=== PATIENT | male | born 1995 | race Caucasian/White ===

== ENCOUNTER 2017-01-13 15:50 | Emergency (ER) | payer SELFPAY ==
[~2017-01-13] VITALS: Ht 170.2 cm; Wt 70.0 kg
[2017-01-13 15:50] VITALS: BP 133/89; PULSE 101; RESP 16; TEMP 98.2; O2SAT 99
[2017-01-13] MEDS ORDERED: SODIUM CHLOR 0.9% 1000 ML INJ 1,000 ML IV SCH (16:05)
[2017-01-13] MEDS ORDERED: ONDANSETRON HCL 4 MG/2 ML VIAL IVP ONE (16:15)
[2017-01-13] MEDS ORDERED: KETOROLAC TROMETHAMINE 30 MG/ML (IVP) VIAL IVP ONE (16:15)
[2017-01-13] MEDS ORDERED: BENZ0.5T PO (16:31)
[2017-01-13] MEDS ORDERED: QUET400T PO (16:31)
--- NOTE | 2017-01-13 16:38 | RADRPT ---
EXAM DATE/TIME: 01/13/2017 16:08 [facility] COMPARISON: CHEST SINGLE AP, August 01, 2014, 22:01. INDICATIONS : Pain in middle of chest, nausea, vomiting MEDICAL HISTORY : None. SURGICAL HISTORY : None. ENCOUNTER: Initial ACUITY: 1 day PAIN SCORE: Non-responsive. LOCATION: Bilateral chest FINDINGS: A single view of the chest demonstrates the lungs to be symmetrically aerated without evidence of mas s, infiltrate or effusion. The cardiomediastinal contours are unremarkable. Osseous structures are intact. CONCLUSION: No acute disease. Derian Coleman MD on January 13, 2017 at 16:37 Board Certified Radiologist. This report was verified electronically.
--- NOTE | 2017-01-13 16:49 | PD ---
HPI Chief Complaint: OD/ Ingestion Time Seen by Provider: 16:02 Travel History International Travel<30 days: No Contact w/Intl Traveler<30days: No Traveled to known affect area: No History of Present Illness HPI 21-year-old male that presents to the ED for evaluation of overdose. Patient was brought here by ambulance. Apparently he was found by mother unconscious in the room. Patient has a history of IV drug abuse and apparently has been clean for about 55 days. He relapsed today. He states that he used "2 bags "which is his usual. He was found to be unresponsive by mother who started CPR on him and called the ambulance. Ambulance given 0.2 of Narcan with improvement of symptoms. Patient complains of some nausea and vomiting as well as some headache. He is very anxious on exam. He denies any other medical issues. He does have a history of depression. Per patient he also uses Xanax before injecting himself IV heroine. He denies any fevers chills or sweats. Denies any other medical issues. Denies overdosing on his depression medications. She denies doing this as a suicidal attempt and states that this was purely recreationally. Per patient he believes that he relapsed because of increased anxiety and stressors at home. PFSH Past Medical History Anxiety: Yes Cardiovascular Problems: Yes (TACHYCARDIA; TAKES PROPANOLOL "PRN") Diminished Hearing: No Gastrointestinal Disorders: Yes (ULCERS ) Genitourinary: Yes Immunizations Current: Yes Past Surgical History Genitourinary Surgery: Yes Other Surgery: Yes (PILONIDAL CYSTS) Social History Alcohol Use: No Tobacco Use: Yes Substance Use: Yes Allergies-Medications (Allergen,Severity, Reaction): Coded Allergies: ceftriaxone (Verified Allergy, Severe, hives, 01/13/17) Reported Meds & Prescriptions Reported Meds & Active Scripts Active Narcan Nasal [place] (Naloxone HCl) 4 Mg/Act [place] 4 Mg NASAL ONCE PRN Contents of 1 nasal spray as a single dose; may repeat every 2 to 3 minutes in alternating nostrils until medical assistance becomes available. Reported Quetiapine (Quetiapine Fumarate) 400 Mg Tab 400 Mg PO HS Benztropine (Benztropine Mesylate) 0.5 Mg Tab 0.2 Mg PO HS Review of Systems Except as stated in HPI: all other systems reviewed are Neg Physical Exam Narrative GENERAL: SKIN: Warm and dry. HEAD: Atraumatic. Normocephalic. EYES: Pupils equal and round 4 mm reactive to light and accommodation. No scleral icterus. No injection or drainage. ENT: No nasal bleeding or discharge. Mucous membranes pink and moist. Tongue is midline. No uvula deviation. NECK: Trachea midline. No JVD. CARDIOVASCULAR: Regular rate and rhythm. No murmurs, S3, S4. RESPIRATORY: No accessory muscle use. Clear to auscultation. Breath sounds equal bilaterally. GASTROINTESTINAL: Abdomen soft, non-tender, nondistended. Hepatic and splenic margins not palpable. MUSCULOSKELETAL: Extremities without clubbing, cyanosis, or edema. No obvious deformities. Full range of motion of the upper and lower extremities bilaterally. Patient has a injection site on the right antecubital area with no sign of bleeding or deformity. NEUROLOGICAL: Awake and alert. No obvious cranial nerve deficits. Motor grossly within normal limits. Five out of 5 muscle strength in the arms and legs. Normal speech. PSYCHIATRIC: Appropriate mood and affect; insight and judgment normal. Data Data Last Documented VS Vital Signs Date Time Temp Pulse Resp B/P (MAP) Pulse Ox O2 Delivery O2 Flow Rate FiO2 01/13/17 18:00 97 16 144/84 (104) 99 Nasal Cannula 2.00 01/13/17 15:50 98.2 Orders Orders Electrocardiogram (01/13/17 16:05) Complete Blood Count With Diff (01/13/17 16:05) Comprehensive Metabolic Panel (01/13/17 16:05) Magnesium (Mg) (01/13/17 16:05) Chest, Single Ap (01/13/17 16:05) Iv Access Insert/Monitor (01/13/17 16:05) Ecg Monitoring (01/13/17 16:05) Oximetry (01/13/17 16:05) Drug Screen, Random Urine (01/13/17 16:05) Alcohol (Ethanol) (01/13/17 16:05) Salicylates (Aspirin) (01/13/17 16:05) Tylenol (Acetaminophen) (01/13/17 16:05) Ondansetron Inj (Zofran Inj) (01/13/17 16:15) Sodium Chlor 0.9% 1000 Ml Inj (Ns 1000 M (01/13/17 16:05) Ketorolac Inj (Toradol Inj) (01/13/17 16:15) Ed Discharge Order (01/13/17 19:09) Labs Laboratory Tests Test 01/13/17 16:15 White Blood Count 9.1 TH/MM3 Red Blood Count 5.14 MIL/MM3 Hemoglobin 14.9 GM/DL Hematocrit 44.6 % Mean Corpuscular Volume 86.8 FL Mean Corpuscular Hemoglobin 29.0 PG Mean Corpuscular Hemoglobin Concent 33.4 % Red Cell Distribution Width 13.6 % Platelet Count 156 TH/MM3 Mean Platelet Volume 9.8 FL CBC Comment AUTO DIFF Differential Total Cells Counted 100 Neutrophils % (Manual) 77 % Band Neutrophils % 1 % Lymphocytes % 16 % Monocytes % 5 % Neutrophils # (Manual) 7.2 TH/MM3 Metamyelocytes 1 % Differential Comment FINAL DIFF MANUAL Platelet Estimate NORMAL Platelet Morphology Comment ENLARGED Blood Urea Nitrogen 18 MG/DL Creatinine 1.18 MG/DL Random Glucose 160 MG/DL Total Protein 8.0 GM/DL Albumin 4.3 GM/DL Calcium Level 8.7 MG/DL Magnesium Level 2.1 MG/DL Alkaline Phosphatase 64 U/L Aspartate Amino Transf (AST/SGOT) 68 U/L Alanine Aminotransferase (ALT/SGPT) 94 U/L Total Bilirubin 0.2 MG/DL Sodium Level 138 MEQ/L Potassium Level 4.3 MEQ/L Chloride Level 102 MEQ/L Carbon Dioxide Level 26.7 MEQ/L Anion Gap 9 MEQ/L Estimat Glomerular Filtration Rate 76 ML/MIN Salicylates Level 2.1 MG/DL Acetaminophen Level LESS THAN 2.0 MCG/ML Ethyl Alcohol Level LESS THAN 3 MG/DL MDM Medical Decision Making Medical Screen Exam Complete: Yes Emergency Medical Condition: Yes Medical Record Reviewed: Yes Interpretation(s) CBC & BMP Diagram 01/13/17 16:15 Total Protein 8.0, Albumin 4.3, Calcium Level 8.7, Magnesium Level 2.1, Alkaline Phosphatase 64, Aspartate Amino Transf (AST/SGOT) 68 H, Alanine Aminotransferase (ALT/SGPT) 94 H, Total Bilirubin 0.2 tox negative Differential Diagnosis Appeared overdose versus scarring overdose versus syncope versus depression versus normal exam Narrative Course 21-year-old male that presents to the ED for evaluation of opiate overdose. Patient was properly examined and was found to have signs and symptoms consistent with opiate overdose. Patient was given IV fluids and labs were ordered. Patient had chest compressions a chest x-ray was ordered. Patient was given Zofran and Toradol for his discomfort. Labs and imaging showed no sign of acute disease. Patient was reassured. Case was discussed with the family and they agree with discharge. Patient was given information for outpatient rehabilitation facilities. Given information for the psychiatrist on -call. Family requested narcotic prescription. This was given to the patient. Recommendations that the patient follows outpatient with psychiatrist or rehabilitation facility if needed. See ED worsening symptoms. Follow with PCP. Diagnosis Primary Impression: Opiate overdose Qualified Codes: T40.601A - Poisoning by unspecified narcotics, accidental ( unintentional), initial encounter Referrals: Adam Jaramillo MD [facility] (Out patient) Patient Instructions: General Instructions Additional Instructions: Take medication only if needed. Follow with her psychiatrist. See ED worsening symptoms. He can follow with the rehabilitation of choice. Med/Other Pt SpecificInfo: Prescription(s) given Scripts Naloxone Nasal [place] (Narcan Nasal [place]) 4 Mg/Act Coy 4 MG NASAL ONCE Y for OPIOID OVERDOSE, #6 SPRAY 0 Refills Contents of 1 nasal spray as a single dose; may repeat every 2 to 3 minutes in alternating nostrils until medical assistance becomes available. Prov: Roger Hogue MD 01/13/17 Disposition: 01 DISCHARGE HOME Condition: Stable Gael Hutchison Jan 13, 2017 16:49
[2017-01-13 17:00] VITALS: BP 130/62; PULSE 98; RESP 16; O2SAT 100
[2017-01-13 17:02] LABS: HEMATOCRIT 44.6 % (39.0-51.0); MEAN CELL VOLUME 86.8 FL (80.0-100.0); MEAN CORPUSCULAR HGB CONC 33.4 % (32.0-36.0); PLATELET COUNT 156 TH/MM3 (150-450); RED BLOOD COUNT 5.14 MIL/MM3 (4.50-5.90); RED CELL DISTRIBUTION WIDTH 13.6 % (11.6-17.2); WHITE BLOOD COUNT 9.1 TH/MM3 (4.0-11.0)
[2017-01-13 17:13] LABS: HEMO FLAGS AUTO DIFF
[2017-01-13 17:17] LABS: ALT (GPT) 94 U/L (12-78); ANION GAP 9 MEQ/L (5-15); AST (GOT) 68 U/L (15-37); BICARBONATE 26.7 MEQ/L (21.0-32.0); BLOOD UREA NITROGEN 18 MG/DL (7-18); CHLORIDE 102 MEQ/L (98-107); GLOMERULAR FILTRATION RATE 76 ML/MIN (>89); MAGNESIUM 2.1 MG/DL (1.5-2.5); POTASSIUM 4.3 MEQ/L (3.5-5.1); SODIUM (NA) 138 MEQ/L (136-145)
[2017-01-13 17:19] LABS: ALCOHOL LESS THAN 3 MG/DL (0-5); ALKALINE PHOSPHATASE 64 U/L (45-117); TOTAL BILIRUBIN ADULT 0.2 MG/DL (0.2-1.0)
[2017-01-13 17:21] LABS: ACETAMINOPHEN LESS THAN 2.0 MCG/ML (10.0-30.0)
[2017-01-13 18:00] VITALS: BP 144/84; PULSE 97; RESP 16; O2SAT 99
--- NOTE | 2017-01-13 18:14 | PD ---
Data Data Last Documented VS Vital Signs Date Time Temp Pulse Resp B/P (MAP) Pulse Ox O2 Delivery O2 Flow Rate FiO2 01/13/17 17:00 98 16 130/62 (84) 100 Nasal Cannula 2.00 01/13/17 15:50 98.2 Orders Orders Electrocardiogram (01/13/17 16:05) Complete Blood Count With Diff (01/13/17 16:05) Comprehensive Metabolic Panel (01/13/17 16:05) Magnesium (Mg) (01/13/17 16:05) Chest, Single Ap (01/13/17 16:05) Iv Access Insert/Monitor (01/13/17 16:05) Ecg Monitoring (01/13/17 16:05) Oximetry (01/13/17 16:05) Drug Screen, Random Urine (01/13/17 16:05) Alcohol (Ethanol) (01/13/17 16:05) Salicylates (Aspirin) (01/13/17 16:05) Tylenol (Acetaminophen) (01/13/17 16:05) Ondansetron Inj (Zofran Inj) (01/13/17 16:15) Sodium Chlor 0.9% 1000 Ml Inj (Ns 1000 M (01/13/17 16:05) Ketorolac Inj (Toradol Inj) (01/13/17 16:15) Psych Screen (01/13/17 17:16) Labs Laboratory Tests Test 01/13/17 16:15 White Blood Count 9.1 TH/MM3 Red Blood Count 5.14 MIL/MM3 Hemoglobin 14.9 GM/DL Hematocrit 44.6 % Mean Corpuscular Volume 86.8 FL Mean Corpuscular Hemoglobin 29.0 PG Mean Corpuscular Hemoglobin Concent 33.4 % Red Cell Distribution Width 13.6 % Platelet Count 156 TH/MM3 Mean Platelet Volume 9.8 FL CBC Comment AUTO DIFF Blood Urea Nitrogen 18 MG/DL Creatinine 1.18 MG/DL Random Glucose 160 MG/DL Total Protein 8.0 GM/DL Albumin 4.3 GM/DL Calcium Level 8.7 MG/DL Magnesium Level 2.1 MG/DL Alkaline Phosphatase 64 U/L Aspartate Amino Transf (AST/SGOT) 68 U/L Alanine Aminotransferase (ALT/SGPT) 94 U/L Total Bilirubin 0.2 MG/DL Sodium Level 138 MEQ/L Potassium Level 4.3 MEQ/L Chloride Level 102 MEQ/L Carbon Dioxide Level 26.7 MEQ/L Anion Gap 9 MEQ/L Estimat Glomerular Filtration Rate 76 ML/MIN Salicylates Level 2.1 MG/DL Acetaminophen Level LESS THAN 2.0 MCG/ML Ethyl Alcohol Level LESS THAN 3 MG/DL MDM Supervised Visit with EDI: Yes Narrative Course The history, exam, and medical decision-making in the associated mid-level provider note were completed with my assistance. I reviewed and agree with the findings presented. I attest that I had a [id number] encounter with the patient on the same day, and personally performed and documented my assessment and findings in the medical record. *My assessment and Findings: 21-year-old accidental heroin overdose combined with benzos. Treated with Narcan. He'll be monitored emergency department. He has family here with him. Discussed support services in the community. High risk for relapse. Roger Hogue MD Jan 13, 2017 18:14
[2017-01-13 18:41] LABS: BANDS 1 % (0-6); METAMYELOCYTES 1 % (0-1); NEUTROPHIL # MANUAL DIFF 7.2 TH/MM3 (1.8-7.7); POLYS (SEG NEUTROPHILS) 77 % (16-70); WBC DIFF SAMPLE 100
[2017-01-13 18:42] LABS: PLATELET ESTIMATE SMEAR NORMAL (NORMAL); PLATELET MORPHOLOGY ENLARGED (NORMAL); SCAN/DIFF FINAL DIFF MANUAL
[2017-01-13] MEDS ORDERED: NALO1SPR NASAL (19:02)
[2017-01-13 19:37] VITALS: BP 138/69; PULSE 98; RESP 12; O2SAT 100
--- NOTE | 2017-01-14 09:54 | EKG ---
Date Performed: 01/13/2017 Time Performed: 16:36:36 PTAGE: 21 years EKG: Sinus rhythm NONSPECIFIC ST & T-WAVE ABNORMALITY ABNORMAL ECG PREVIOUS TRACING : 08/01/2014 21.43 DOCTOR: Roger Kirkland Interpretating Date/Time 01/14/2017 09:53:57
== END 2017-01-13 19:43 | disposition home or self-care (01) ==
LOC: NEPC 15:50
DX: T40.1X1A Poisoning by heroin, accidental (unintentional), initial encounter (principal); T42.4X1A Poisoning by benzodiazepines, accidental (unintentional), initial encounter; R11.2 Nausea with vomiting, unspecified; R51 Headache; F32.9 Major depressive disorder, single episode, unspecified; F41.9 Anxiety disorder, unspecified; R94.31 Abnormal electrocardiogram [ECG] [EKG]; Z72.0 Tobacco use; Z79.899 Other long term (current) drug therapy
CPT/HCPCS: 71010; 80053; 80307; 83735; 85007; 85027; 93005; 96361; 96374; 96375; 99285; J1885; J2405; J7030

== ENCOUNTER 2017-02-17 11:05 | Emergency (ER) | payer OTHER ==
[~2017-02-17] VITALS: Ht 170.2 cm; Wt 72.0 kg
[~2017-02-17 11:05] MED LIST: BENZ0.5T PO; NALO1SPR NASAL; QUET400T PO
[2017-02-17 11:13] VITALS: BP 115/82; PULSE 168; RESP 18; O2SAT 97
[2017-02-17] MEDS ORDERED: SODIUM CHLOR 0.9% 1000 ML INJ 1,000 ML IV SCH (11:18)
[2017-02-17] MEDS ORDERED: NALOXONE HCL 0.4 MG/ML AMP ONE ×2 (11:19→11:20)
[2017-02-17 11:27] VITALS: BP 115/82; PULSE 138; RESP 18; O2SAT 100
[2017-02-17] MEDS ORDERED: NALOXONE HCL 0.4 MG/ML AMP IV PUSH ONE (11:30)
[2017-02-17] MEDS ORDERED: SODIUM CHLORIDE 0.9% FLUSH 10 ML FLUSH IV FLUSH PRN (11:30)
--- NOTE | 2017-02-17 12:46 | PD ---
HPI Chief Complaint: Altered Mental Status Time Seen by Provider: 11:08 Travel History International Travel<30 days: No Contact w/Intl Traveler<30days: No Traveled to known affect area: No History of Present Illness HPI 20-year-old male came to the emergency room brought by EMS altered mental status. [place] Patient seems to be falling asleep in the middle of answering. However he did tell me that he took 4 mg of his mother's Ativan pills last night. He took it because he was anxious and could not sleep. Denied any other illicit drug use. Patient was tachycardic upon arrival with heart rate in 160s. [facility] Past Medical History Narrative Medical list of his past medical, surgical, social and family history is reviewed from the nursing note. Anxiety: Yes Cardiovascular Problems: Yes Diminished Hearing: No Gastrointestinal Disorders: Yes (ULCERS ) Genitourinary: Yes Immunizations Current: Yes Past Surgical History Genitourinary Surgery: Yes Other Surgery: Yes (PILONIDAL CYSTS) Social History Alcohol Use: No Tobacco Use: Yes Substance Use: Yes Allergies-Medications (Allergen,Severity, Reaction): Coded Allergies: ceftriaxone (Verified Allergy, Severe, hives, 01/13/17) Comments List of his allergies reviewed from the nursing note. Reported Meds & Prescriptions Reported Meds & Active Scripts Active Narcan Nasal [place] (Naloxone HCl) 4 Mg/Act [place] 4 Mg NASAL ONCE PRN Contents of 1 nasal spray as a single dose; may repeat every 2 to 3 minutes in alternating nostrils until medical assistance becomes available. Reported Quetiapine (Quetiapine Fumarate) 400 Mg Tab 400 Mg PO HS Benztropine (Benztropine Mesylate) 0.5 Mg Tab 0.2 Mg PO HS Narrative Medication List of his home medications reviewed from the nursing note. Review of Systems ROS Limitations: Altered Mental Status Except as stated in HPI: all other systems reviewed are Neg Physical Exam Narrative GENERAL: Groggy, slurred speech SKIN: Focused skin assessment warm/dry. HEAD: Atraumatic. Normocephalic. EYES: Pinpoint pupils. No scleral icterus. No injection or drainage. ENT: No nasal bleeding or discharge. Mucous membranes pink and moist. NECK: Trachea midline. No JVD. CARDIOVASCULAR: Regular rate and rhythm. No murmur appreciated. RESPIRATORY: No accessory muscle use. Clear to auscultation. Breath sounds equal bilaterally. GASTROINTESTINAL: Abdomen soft, non-tender, nondistended. Hepatic and splenic margins not palpable. MUSCULOSKELETAL: No obvious deformities. No clubbing. No cyanosis. No edema. NEUROLOGICAL: GCS of 14. No obvious cranial nerve deficits. Motor grossly within normal limits. Slurred speech. PSYCHIATRIC: Appropriate mood and affect; insight and judgment normal. Data Data Last Documented VS Vital Signs Date Time Temp Pulse Resp B/P (MAP) Pulse Ox O2 Delivery O2 Flow Rate FiO2 02/17/17 11:44 02/17/17 11:27 138 18 100 Room Air Orders Orders Electrocardiogram (02/17/17 11:18) Blood Glucose (02/17/17 11:18) Ecg Monitoring (02/17/17 11:18) Iv Access Insert/Monitor (02/17/17 11:18) Oximetry (02/17/17 11:18) Sodium Chloride 0.9% Flush (Ns Flush) (02/17/17 11:30) Sodium Chlor 0.9% 1000 Ml Inj (Ns 1000 M (02/17/17 11:18) Naloxone Inj (Narcan Inj) (02/17/17 11:30) Naloxone Inj (Narcan Inj) (02/17/17 11:19) Naloxone Inj (Narcan Inj) (02/17/17 11:20) MDM Medical Decision Making Medical Screen Exam Complete: Yes Emergency Medical Condition: Yes Medical Record Reviewed: Yes Interpretation(s) Twelve-lead EKG was reviewed by me. Normal sinus rhythm, right axis deviation, tachycardia, nonspecific ST-T wave changes. Heart rate of 147 bpm. Differential Diagnosis Opiate overdose, head bleed Narrative Course 11:30 AM patient was given IV 1.2 mg of Narcan after which he abruptly woke up. He pulled his IV out and wanted to leave. He did not want to stay and understood the risk of leaving. At that point he was in full capacity to make decisions for himself. Procedures EKG Prior to Arrival: No Diagnosis Primary Impression: Opiate overdose Qualified Codes: T40.601A - Poisoning by unspecified narcotics, accidental ( unintentional), initial encounter Patient Instructions: General Instructions Departure Forms: Tests/Procedures Disposition: 07 AGAINST MEDICAL ADVICE Condition: Serious Edwar Soliz MD Feb 17, 2017 12:46
--- NOTE | 2017-02-17 19:25 | EKG ---
Date Performed: 02/17/2017 Time Performed: 11:16:29 PTAGE: 21 years EKG: SINUS TACHYCARDIA ATRIAL FLUTTER BORDERLINE RIGHT AXIS DEVIATION NONSPECIFIC ST & T-WAVE AB NORMALITY Other than increase in heart rate, no other significant change Since previous tracing. ABNO RMAL RHYTHM ECG PREVIOUS TRACING : 01/13/2017 16.36 DOCTOR: Guy Najera Interpretating Date/Time 02/17/2017 19:23:29
== END 2017-02-17 11:35 | disposition left against medical advice (07) ==
LOC: NEPC 11:05
DX: T40.601A Poisoning by unspecified narcotics, accidental (unintentional), initial encounter (principal); F41.9 Anxiety disorder, unspecified; R00.0 Tachycardia, unspecified; I48.92 Unspecified atrial flutter; R94.31 Abnormal electrocardiogram [ECG] [EKG]; Z72.0 Tobacco use; Z79.899 Other long term (current) drug therapy
CPT/HCPCS: 93005; 96374; 99285; J2310; J7030

== ENCOUNTER 2017-03-27 09:02 | Emergency (ER) | payer SELFPAY ==
[~2017-03-27] VITALS: Ht 172.7 cm; Wt 70.0 kg
[2017-03-27 09:03] VITALS: BP 147/68; PULSE 111
[2017-03-27 09:09] VITALS: BP 155/74; PULSE 107; PULSE 114; RESP 13; RESP 20; O2SAT 97; O2SAT 98
--- NOTE | 2017-03-27 09:24 | PD ---
HPI Chief Complaint: OD/ Ingestion Time Seen by Provider: 09:23 Travel History International Travel<30 days: No (Unknown) Contact w/Intl Traveler<30days: No (Unknown) History of Present Illness HPI Patient is not approximately mid 30s male presents emergency department after friends dropped him off upfront unresponsive. No other history as available at this time. Patient nearly comatose on arrival. [facility] Past Medical History Medical History: Unable to Obtain ?: Not Past Surgical History Surgical History: Unable to Obtain Social History Tobacco Use: No (unknown) Review of Systems ROS Limitations: Clinical Condition, Altered Mental Status Physical Exam Narrative GENERAL: Well-developed well-nourished, nearly comatose, arouses with painful stimuli. SKIN: Focused skin assessment warm/dry. HEAD: Atraumatic. Normocephalic. EYES: Pupils equal and round. No scleral icterus. No injection or drainage. ENT: No nasal bleeding or discharge. Mucous membranes pink and moist. NECK: Trachea midline. No JVD. CARDIOVASCULAR: Regular rate and rhythm. No murmur appreciated. RESPIRATORY: No accessory muscle use. Clear to auscultation. Breath sounds equal bilaterally. GASTROINTESTINAL: Abdomen soft, non-tender, nondistended. Hepatic and splenic margins not palpable. MUSCULOSKELETAL: No obvious deformities. No clubbing. No cyanosis. No edema. NEUROLOGICAL: Nearly comatose GCS of [id number]=76. Moves all 4 c extremities with purposeful movement. PSYCHIATRIC: Unable to assess. Data Data Last Documented VS Vital Signs Date Time Temp Pulse Resp B/P (MAP) Pulse Ox O2 Delivery O2 Flow Rate FiO2 03/27/17 13:49 03/27/17 11:43 99 16 100 Nasal Cannula 2.00 Orders Orders Basic Metabolic Panel (Bmp) (03/27/17 09:23) Complete Blood Count With Diff (03/27/17 09:23) Ct Brain W/O Iv Contrast(Rout) (03/27/17 09:23) Blood Glucose (03/27/17 09:23) Ecg Monitoring (03/27/17 09:23) Iv Access Insert/Monitor (03/27/17 09:23) Oximetry (03/27/17 09:23) Alcohol (Ethanol) (03/27/17 09:23) Ct Cerv Spine W/O Contrast (03/27/17 ) Ed Discharge Order (03/27/17 13:26) Labs Laboratory Tests Test 03/27/17 09:25 White Blood Count 10.4 TH/MM3 Red Blood Count 4.98 MIL/MM3 Hemoglobin 15.0 GM/DL Hematocrit 43.0 % Mean Corpuscular Volume 86.4 FL Mean Corpuscular Hemoglobin 30.2 PG Mean Corpuscular Hemoglobin Concent 34.9 % Red Cell Distribution Width 12.5 % Platelet Count 206 TH/MM3 Mean Platelet Volume 10.5 FL Neutrophils (%) (Auto) 52.7 % Lymphocytes (%) (Auto) 36.1 % Monocytes (%) (Auto) 8.1 % Eosinophils (%) (Auto) 2.8 % Basophils (%) (Auto) 0.3 % Neutrophils # (Auto) 5.5 TH/MM3 Lymphocytes # (Auto) 3.7 TH/MM3 Monocytes # (Auto) 0.8 TH/MM3 Eosinophils # (Auto) 0.3 TH/MM3 Basophils # (Auto) 0.0 TH/MM3 CBC Comment DIFF FINAL Differential Comment Blood Urea Nitrogen 15 MG/DL Creatinine 1.10 MG/DL Random Glucose 167 MG/DL Calcium Level 8.6 MG/DL Sodium Level 136 MEQ/L Potassium Level 3.6 MEQ/L Chloride Level 105 MEQ/L Carbon Dioxide Level 22.5 MEQ/L Anion Gap 9 MEQ/L Estimat Glomerular Filtration Rate 58 ML/MIN Ethyl Alcohol Level LESS THAN 3 MG/DL MDM Medical Decision Making Medical Screen Exam Complete: Yes Emergency Medical Condition: Yes Differential Diagnosis Heroine overdose, head trauma, electrolyte abnormality, substance abuse., Intoxication. Narrative Course Patient roomed emergency department, initially registered as Derian Yu he was observed for several hours in the emergency department. He was aroused painful stimuli, Done cardiopulmonary monitoring and had no desaturation while in the ER. Over the next few hours he gradually returned consciousness and to the point where he was alert and awake and oriented and appeared to be clinically sober. At that time he then a fight himself and states that it was his birthday and decided to celebrate with heroin. He states he does not use heroin but I asked him about the multiple track rudd and he again declined stating that he this is a one-time thing. At this time the patient is clinically sober for discharge to his own care. Discussed IV drug abuse at length and its many adverse health outcomes including infection HIV hepatitis and sudden or prolonged permanent disability which could be partial or complete. He verbalized understanding, discussed follow-up stool Doris martínez as primary care physician. He stable for discharge Diagnosis Primary Impression: Heroin overdose Referrals: [facility] Disposition: 01 DISCHARGE HOME Condition: Stable Александр White MD Mar 27, 2017 09:24
[2017-03-27 09:39] LABS: AUTOMATED NEUTROPHIL # 5.5 TH/MM3 (1.8-7.7); BASOPHIL % 0.3 % (0.0-2.0); EOSINOPHIL # 0.3 TH/MM3 (0-0.4); EOSINOPHIL % 2.8 % (0.0-4.0); LYMPH % 36.1 % (9.0-44.0); LYMPHOCYTE # 3.7 TH/MM3 (1.0-4.8); MEAN CELL VOLUME 86.4 FL (80.0-100.0); MEAN CORPUSCULAR HEMOGLOBIN 30.2 PG (27.0-34.0); MEAN CORPUSCULAR HGB CONC 34.9 % (32.0-36.0); MEAN PLATELET VOLUME 10.5 FL (7.0-11.0); MONO % 8.1 % (0.0-8.0); MONOCYTE # 0.8 TH/MM3 (0-0.9); NEUT % 52.7 % (16.0-70.0); PLATELET COUNT 206 TH/MM3 (150-450); RED BLOOD COUNT 4.98 MIL/MM3 (4.50-5.90); RED CELL DISTRIBUTION WIDTH 12.5 % (11.6-17.2); WHITE BLOOD COUNT 10.4 TH/MM3 (4.0-11.0)
[2017-03-27 10:03] LABS: BICARBONATE 22.5 MEQ/L (21.0-32.0); BLOOD UREA NITROGEN 15 MG/DL (7-18); CALCIUM 8.6 MG/DL (8.5-10.1); CHLORIDE 105 MEQ/L (98-107); GLOMERULAR FILTRATION RATE 58 ML/MIN (>89); GLUCOSE,RANDOM 167 MG/DL (74-106); SODIUM (NA) 136 MEQ/L (136-145)
--- NOTE | 2017-03-27 10:20 | RADRPT ---
EXAM DATE/TIME: 03/27/2017 10:06 [facility] COMPARISON: No previous studies available for comparison. INDICATIONS : Altered mental status, possible overdose. RADIATION DOSE: 33.20 CTDIvol (mGy) MEDICAL HISTORY : None SURGICAL HISTORY : None. ENCOUNTER: Initial ACUITY: 1 day PAIN SCALE: 0/10 LOCATION: cranial TECHNIQUE: Multiple contiguous axial images were obtained of the head. Using automated exposure control and adj ustment of the mA and/or kV according to patient size, radiation dose was kept as low as reasonably a chievable to obtain optimal diagnostic quality images. DICOM format image data is available electro nically for review and comparison. FINDINGS: CEREBRUM: The ventricles are normal for age. No evidence of midline shift, mass lesion, hemorrhage or acute in farction. No extra-axial fluid collections are seen. Ventricles are normal size minimal nonspecific asymmetry right lateral ventricle minimally more prominent than the left. POSTERIOR FOSSA: The cerebellum and brainstem are intact. The 4th ventricle is midline. The cerebellopontine angle i s unremarkable. EXTRACRANIAL: The visualized portion of the orbits is intact. SKULL: The calvaria is intact. No evidence of skull fracture. CONCLUSION: No acute disease. Fidel Salinas MD on March 27, 2017 at 10:17 Board Certified Radiologist. This report was verified electronically.
--- NOTE | 2017-03-27 10:25 | RADRPT ---
EXAM DATE/TIME: 03/27/2017 10:06 [facility] COMPARISON: No previous studies available for comparison. INDICATIONS : Trauma, post fall, possible overdose. RADIATION DOSE: 18.02 CTDIvol (mGy) MEDICAL HISTORY : None SURGICAL HISTORY : None. ENCOUNTER: Initial ACUITY: 1 day PAIN SCALE: 4/10 LOCATION: neck TECHNIQUE: Volumetric scanning of the cervical spine was performed. Multiplanar reconstructions in the sagittal, coronal and oblique axial planes were performed. Using automated exposure control and adjustment o f the mA and/or kV according to patient size, radiation dose was kept as low as reasonably achievable to obtain optimal diagnostic quality images. DICOM format image data is available electronically f or review and comparison. FINDINGS: VERTEBRAE: Normal vertebral body height. ALIGNMENT: No evidence of subluxation. C2-C3: The bony spinal canal is normal in size. No evidence of disc bulge or herniation. The neural forami na are bilaterally patent. C3-C4: The bony spinal canal is normal in size. No evidence of disc bulge or herniation. The neural forami na are bilaterally patent. C4-C5: The bony spinal canal is normal in size. No evidence of disc bulge or herniation. The neural forami na are bilaterally patent. C5-C6: The bony spinal canal is normal in size. No evidence of disc bulge or herniation. The neural forami na are bilaterally patent. C6-C7: The bony spinal canal is normal in size. No evidence of disc bulge or herniation. The neural forami na are bilaterally patent. C7-T1: The bony spinal canal is normal in size. No evidence of disc bulge or herniation. The neural forami na are bilaterally patent. CONCLUSION: Normal examination. Fidel Salinas MD on March 27, 2017 at 10:21 Board Certified Radiologist. This report was verified electronically.
[2017-03-27 11:10] VITALS: BP 125/59; PULSE 98; RESP 16; O2SAT 100
[2017-03-27 11:43] VITALS: BP 129/77; PULSE 99; RESP 16; O2SAT 100
== END 2017-03-27 13:51 | disposition home or self-care (01) ==
LOC: MERGE 09:02 → EDBD 09:02 → NEPE 09:02
DX: T40.1X4A Poisoning by heroin, undetermined, initial encounter (principal)
CPT/HCPCS: 70450; 72125; 80048; 80307; 85025; 99285